=== PATIENT | male | born 1940 | race Caucasian/White ===

== ENCOUNTER 2016-10-29 10:23 | Inpatient (IN) | payer MEDICARE, OTHER ==
--- NOTE | ~2016-10-29 | CR72 ---
[facility] A Service of [facility] RADIOLOGY TEXT RESULTS PATIENT: ADRY SCHMITT LOCATION: [address] : 42 UNIT #: [id number] AGE: [address]: ANDRES POPE MD SEX: M ORDER DR: [id number] [facility] [address] [place], [place] [address] [id number] I MR#: [id number] #: [id number] NAME: ADRY SCHMITT : 1940 SEX: M STUDY DATE/TIME: 10/30/2016 5:20 UNIT: [facility] ROOM: [facility] STUDY DESCRIPTION: CR Chest Single View Portable Attending Physician: Andres Pope M.D. Referring Physician: Marlin Enriquez M.D. Ordering Physician: Yoshi Pope M.D. Primary Care Physician: Marlin Enriquez M.D. MEDICAL IMAGING REPORT This report is preliminary unless electronic signature is present EXAM AP portable chest 10/30/2016. HISTORY Respiratory failure. Follow up cardiopulmonary status. TECHNIQUE AP portable chest x-ray. FINDINGS Exam shows no significant change since yesterday. Mild cardiomegaly with probable mild vascular congestion. Pleural effusion with infiltrate or atelectasis in the left lung base. Low lung volumes. IMPRESSION Stable portable chest radiograph, unchanged since yesterday. Dictated by... Jose Cruz Rosas M.D. THIS IS AN ELECTRONICALLY VERIFIED REPORT Jose Cruz Rosas M.D. at 10/30/2016 3:06 PM JENNIFER/michael TD: 10/30/2016 12:10 JOB #: [id number] MEDICAL IMAGING REPORT COPY
--- NOTE | ~2016-10-29 | CO ---
Unit #: [id number] #: [id number] Patient: ADRY SCHMITT [id number] [address] [place], [place] [address] [id number] I MR#: [id number] NAME: ADRY SCHMITT ROOM: [facility] Age: 76 Sex: M Admission Date: 10/29/2016 : 1940 Attending Physician: Yuval Pope M.D. Primary Care Physician: Marlin Enriquez M.D. Consultation Date: 10/29/2016 CONSULTATION REPORT REASON FOR CONSULTATION Intensive care unit management. CHIEF COMPLAINT Shortness of breath. HISTORY OF PRESENT ILLNESS This is a pleasant 76-year-old male, with past medical history significant for chronic obstructive pulmonary disease, hypertension, atrial fibrillation on Coumadin, who presented to the emergency room with severe respiratory distress. History provided by his who is at bedside. She stated that this patient started having some cough and upper respiratory symptoms two days ago. He went to his doctor yesterday who advised him to go to the hospital but the patient was adamant to go home, so the patient was sent home on some p.o. antibiotics and Medrol Avi; however, later on throughout that day, he started becoming woozy and more dyspneic. Early this morning, his noted that he was in moderate respiratory distress so she forced him to come to the hospital. Upon presentation, the patient had to be placed on BiPAP due to severe respiratory distress. He is currently more comfortable and following commands. REVIEW OF SYSTEMS Twelve point review of systems were obtained and were negative except for what was mentioned in the history of present illness. PAST MEDICAL HISTORY 1. Chronic obstructive pulmonary disease. 2. Hypertension. 3. Atrial fibrillation. 4. Congestive heart failure. 5. Skin cancer. 6. Hyperlipidemia. 7. Diabetes. PAST SURGICAL HISTORY 1. Tonsillectomy. 2. Wound vac to right lower extremity. SOCIAL HISTORY The patient smokes half a pack per day since age 18. He denied any history of alcohol or drug abuse. FAMILY HISTORY Unit #: [id number] #: [id number] Patient: ADRY SCHMITT Hypertension. ALLERGIES Penicillin and Lipitor. HOME MEDICATIONS 1. WelChol 2. Fenofibrate 3. Potassium 4. Coumadin 5. Lantus 6. Bumex 7. Coreg 8. Cardizem 9. Pravachol 10. Vitamin D 11. Doxycycline 12. Zetia 13. Prednisone PHYSICAL EXAMINATION GENERAL: The patient is in respiratory distress on BiPAP. VITAL SIGNS: Blood pressure 113/62, O2 saturation 98%. HEENT: Atraumatic and normocephalic. NEMO. Extraocular muscles are intact. NECK: Supple. No jugular venous distention. No lymphadenopathy. CHEST: Decreased breath sounds bilaterally mainly at the bases with fine rhonchi at the left lower base. HEART: S1 and S2 with regular rhythm. No systolic murmur. ABDOMEN: Soft and nontender. Bowel sounds are positive. No hepatosplenomegaly. EXTREMITIES: No edema or cyanosis. SKIN: No rashes. REFINISHER: Awake, alert, oriented x3. No focal motor/sensory deficit. DIAGNOSTIC STUDIES LABORATORY: Blood gas, 7.8/77/69. White blood count 8.3, creatinine 1.4, sodium 138. IMAGING: Chest x-ray is concerning for pneumonia in the left lower lobe and right lower lobe. ASSESSMENT 1. Acute hypoxic hypercarbic respiratory failure. 2. Pneumonia likely Gram positive. 3. Congestive heart failure exacerbation. 4. Morbid obesity. 5. Diabetes. 6. Hypertension. 7. Hyperlipidemia. PLAN 1. The patient is critical, we will continue the patient on BiPAP with short breaks. 2. We will start the patient on IV Bumex and monitor I's and O's and inputs and outputs very strictly. 3. IV antibiotics including cefepime and azithromycin. 4. Bronchodilator and mucolytics. Unit #: [id number] #: [id number] Patient: ARDY SCHMITT 5. IV steroids. We will watch blood sugar very closely. 6. Sleep study as an outpatient. Critical care time spent on this patient was 32 minutes. Dictated by... Dahiana Loya TD: 10/30/2016 12:36 JOB #: [id number] CONSULTATION REPORT X SPENCER DELUNA MD CONSULTATION REPORT
--- NOTE | ~2016-10-29 | EKG ---
PATIENT: ADRY SCHMITT UNIT #: [id number] Ventricular Rate: 76 BPM Atrial Rate: 110 BPM QRS Duration: 76 ms Q-T Interval: 402 ms QTC Calculation(Bezet): 452 ms Calculated R Chester: 56 degrees Calculated T Chester: 42 degrees Diagnosis Line: Atrial fibrillation Diagnosis Line: Abnormal ECG Diagnosis Line: When compared with ECG of 29-OCT-2016 09:26, Diagnosis Line: (unconfirmed) Diagnosis Line: No significant change was found Diagnosis Line: Confirmed by KRISTAL MARROQUIN MD ([id number]) on Diagnosis Line: 10/30/2016 10:54:46 PM INTERPRETING MD: LEXIE
--- NOTE | ~2016-10-29 | CO ---
Unit #: [id number] #: [id number] Patient: ADRY SCHMITT [id number] [address] [place], [place] [address] [id number] I MR#: [id number] NAME: ADRY SCHMITT ROOM: [facility] Age: 76 Sex: M Admission Date: 10/29/2016 : 1940 Attending Physician: Yuval Pope M.D. Primary Care Physician: Marlin Enriquez M.D. CONSULTATION REPORT REASON FOR CONSULTATION Atrial fibrillation. HISTORY OF PRESENT ILLNESS This is a 76-year-old obese white male, who was brought to the emergency room complaining of shortness of breath for the last 2 to 3 days. He was found to be hypoxic on arrival to the ER. His O2 sat was 86% on 6 L of oxygen via nasal cannula and was started on a BiPAP. Apparently, he had been complaining of some shortness of breath for the last few days, and on 10/28/2016, he was seen by his primary care provider, Dr. Enriquez, and started on oral antibiotics, doxycycline, steroid, and prednisone. His condition and symptoms worsened. His shortness of breath did not improve, so he presented to the emergency room in acute respiratory failure. He had a change of mental status. Apparently, he had no chest pain, no fever, no syncope, but he did complain of a cough and some bilateral lower extremity swelling for the last 2 to 3 days. PAST MEDICAL HISTORY COPD; hypertension; AFib, managed on Coumadin; CHF; and skin cancer. PAST SURGICAL HISTORY Wound VAC to the right lower extremity and tonsillectomy. HOME MEDICATIONS Fenofibrate 200 mg daily, Coumadin 2 mg daily, Lantus 39 units at bedtime, Carvedilol 12.5 mg b.i.d., diltiazem CD 240 mg daily, Pravachol 20 mg daily, vitamin D 1000 units daily, albuterol 3 mL per nebulizer every 4 hours as needed for shortness of breath, Vibramycin 100 mg b.i.d., Zetia 10 mg daily, and prednisone 10 mg daily. ALLERGIES Penicillin and Lipitor. SOCIAL HISTORY Apparently, he smokes about a half pack of cigarettes daily. No alcohol or any illicit drug use reported. FAMILY HISTORY Unremarkable. REVIEW OF SYSTEMS 12-point review of systems was completed and as noted above in the HPI. Unit #: [id number] #: [id number] Patient: ADRY SCHMITT PHYSICAL EXAMINATION VITAL SIGNS: Temperature 98.1, heart rate 79, respirations 24, blood pressure is 153/90, he is 97% on BiPAP. Admission weight is 103 kg. His BMI is 38. NECK: Supple and obese with no JVD noted. No bruits noted. CHEST: Decreased breath sounds with rhonchi bilaterally. CARDIOVASCULAR: He has normal heart sounds, irregularly irregular rhythm with no clicks, no rubs, no murmur noted. ABDOMEN: Morbidly obese, but no masses, no organomegaly. EXTREMITIES: He has evidence of venous stasis to bilateral lower extremities and absent pedal pulses. No leg edema noted. DIAGNOSTIC STUDIES IMAGING STUDIES: Single-view chest x-ray done on 10/29/2016. Impression: 1. Cardiomegaly, possibly mild vascular congestion. 2. Airspace consolidation and/or pleural effusion in the left lung base. CARDIOVASCULAR STUDIES: EKG showed atrial fibrillation with a controlled heart rate and no acute ischemic changes. Vent rate of 76 beats per minute. QTC 452 milliseconds. LABORATORY RESULTS: Sodium 142, potassium 5, chloride 104, CO2 of 28, BUN is 41, creatinine 1.4, and glucose is 71. GFR is reduced mildly to 52.7. BNP was 508. Hemoglobin is 13.7, WBCs 11.2, hematocrit 42.3, and platelets 142. Troponin was less than 0.05. CK-MB was 3.3. PT was 76.9, INR is 6.8, PTT is 42.8. Blood gas pH was 7.3, PCO2 of 67.3, PO2 of 61.5, O2 sat of 89.3 that was done on BiPAP 14/6 settings. Lactic acid level 1.3. IMPRESSION 1. Acute congestive heart failure with questionable ischemic heart disease. 2. Severe chronic obstructive pulmonary disease. 3. Tobacco abuse. 4. Hypertension. 5. Insulin-dependent diabetes. 6. Severe peripheral artery disease. 7. Atherosclerotic cerebrovascular disease. 8. Obstructive sleep apnea. 9. Coumadin toxicity. PLAN Cardiology will follow him for his AFib and his CHF. We agree with adding diuretics. We will add an KRYSTINA for better blood pressure control, especially since he is diabetic, aspirin 81 daily. We will follow. Once his CHF is treated and improved, he will need an ischemic heart disease workup. Lisinopril 10 mg p.o. daily has been ordered. We will a check a 2D echo with Doppler today. Add a.c. and h.s. Accu-Checks with low-dose sliding scale protocol and check a fasting lipid profile. His Lovenox should be held today as his INR is supratherapeutic and we will administer vitamin K 5 mg subcu now and repeat at 2 p.m. Thank you for this consult. Dictated by... Linda Stone APRN for Dahiana Alvarez/melania Unit #: [id number] #: [id number] Patient: ADRY SCHMITT TD: 10/30/2016 09:44 JOB #: [id number] CONSULTATION REPORT X X CONSULTATION REPORT
--- NOTE | ~2016-10-29 | CR72 ---
[facility] A Service of [facility] & [facility] RADIOLOGY TEXT RESULTS PATIENT: ADRY SCHMITT LOCATION: [place] [id number] : [birth year] UNIT #: [id number] AGE: [address]: ANDRES AMIN MD SEX: M ORDER DR: [id number] [facility] [address] [place], [place] [address] [id number] MR#: [id number] Acc #: [id number] NAME: ADRY SCHMITT : 1940 SEX: M STUDY DATE/TIME: 10/29/2016 9:38 UNIT: [facility] ROOM: STUDY DESCRIPTION: CR Chest Single View Portable Attending Physician: Ye Ledesma M.D. Referring Physician: Marlin Enriquez M.D. Ordering Physician: Ye Ledesma M.D. Primary Care Physician: Marlin Enriquez M.D. MEDICAL IMAGING REPORT This report is preliminary unless electronic signature is present EXAM AP portable chest 10/29/2016 HISTORY 76-year-old male in the ED complaining of new onset shortness of air and cough beginning today. He has a reported history of congestive heart failure, diabetes and atrial fibrillation. TECHNIQUE AP portable upright chest x-ray. FINDINGS There is dense opacification of the left lung base behind the heart which could be due to pulmonary consolidation or pleural effusion with atelectasis. This is new since the previous study of 07/27/2011. Wqhy-np-skrrmjui cardiomegaly. Mildly prominent diffuse interstitial markings, also new since prior exam, may indicate mild vascular congestion, correlate clinically. Low lung volumes. IMPRESSION 1. Cardiomegaly and possible mild vascular congestion. 2. Airspace consolidation and/or pleural effusion at the left lung base. Dictated by... Jose Cruz Rosas M.D. THIS IS AN ELECTRONICALLY VERIFIED REPORT Jose Cruz Rosas M.D. at 10/29/2016 3:01 PM JENNIFER/michael TD: 10/29/2016 12:59 JOB #: [id number] [facility] A Service of [facility] & [facility] RADIOLOGY TEXT RESULTS PATIENT: ARDY SCHMITT LOCATION: [facility] [place] [address]80 : [birth year] UNIT #: [id number] AGE: [address]: ANDRES AMIN MD SEX: M ORDER DR: MEDICAL IMAGING REPORT COPY
--- NOTE | ~2016-10-29 | CR72 ---
[facility] A Service of [facility] & [facility] RADIOLOGY TEXT RESULTS PATIENT: ADRY SCHMITT LOCATION: [place] [address]- : [birth year] UNIT #: [id number] AGE: [address]: Feliciano Hein MD SEX: M ORDER DR: [id number] [facility] [address] [place], [place] [address] [id number] I MR#: [id number] Acc #: [id number] NAME: ADRY SCHMITT : 1940 SEX: M STUDY DATE/TIME: 11/02/2016 2:49 UNIT: [facility] ROOM: [facility] STUDY DESCRIPTION: CR Chest Single View Portable Attending Physician: Feliciano Hein M.D. Referring Physician: Marlin Enriquez M.D. Ordering Physician: Shravan Rivera M.D. Primary Care Physician: Marlin Enriquez M.D. MEDICAL IMAGING REPORT This report is preliminary unless electronic signature is present EXAM Portable AP view of the chest COMPARISON October 30, 2016, October 29, 2016 and July 27, 2011. INDICATION 76-year-old male with respiratory failure for 4 days. History of hypertension and CHF. Atrial fibrillation and COPD. FINDINGS No pneumothorax. There appears to be mild cardiomegaly, possibly accentuated by portable technique. However, PA view from November 2010 does demonstrate cardiomegaly. This is favored to be real. Since October 30, 2016 there are improved left lower lobe opacities reflecting atelectasis versus pneumonia. This could also reflect mild residual edema as interstitial opacities throughout the lungs have near completely resolved, likely reflecting improved pulmonary edema. There may be small associated left pleural effusion. IMPRESSION Improved interstitial opacities throughout the lungs in the setting of cardiomegaly, with improved confluent left basilar opacities, findings likely reflecting improved pulmonary edema. Correlation to exclude signs of left lower lobe pneumonia recommended. There is likely residual trace left pleural effusion. Dictated by... Manny Gilmore M.D. THIS IS AN ELECTRONICALLY VERIFIED REPORT Manny Gilmore M.D. at 11/07/2016 8:49 PM [facility] A Service of [facility] & [facility] RADIOLOGY TEXT RESULTS PATIENT: ADRY SCHMITT LOCATION: [address] 561-01 : [birth year] UNIT #: [id number] AGE: [address]: Feliciano Hein MD SEX: M ORDER DR: TYRELL/freddie TD: 11/02/2016 09:41 JOB #: [id number] MEDICAL IMAGING REPORT COPY
--- NOTE | ~2016-10-29 | EKG ---
PATIENT: ADRY SCHMITT UNIT #: [id number] Ventricular Rate: 74 BPM Atrial Rate: 250 BPM QRS Duration: 80 ms Q-T Interval: 388 ms QTC Calculation(Bezet): 430 ms Calculated R [place]: 70 degrees Calculated T [place]: 49 degrees Diagnosis Line: Atrial fibrillation Diagnosis Line: Abnormal ECG Diagnosis Line: When compared with ECG of 27-JUL-2011 14:29, Diagnosis Line: Atrial fibrillation has replaced Sinus rhythm Diagnosis Line: Confirmed by KRISTAL MARROQUIN MD ([id number]) on Diagnosis Line: 10/30/2016 10:41:00 PM INTERPRETING MD: LEXIE
--- NOTE | ~2016-10-29 | DS ---
Unit #: [id number] #: [id number] Patient: ADRY SCHMITT [id number] [address] [place], [place] [address] [id number] I MR#: [id number] NAME: ADRY SCHMITT ROOM: 561 Age: 76 Sex: M Admission Date: 10/29/2016 : 1940 Discharge Date: 11/07/2016 Attending Physician: Feliciano Hein M.D. Referring Physician: Marlin Enriquez M.D. Primary Care Physician: Marlin Enriquez M.D. DISCHARGE SUMMARY CONSULTANTS 1. Dr. García. 2. Dr. Cindy Pope. PROCEDURE Cardiac catheterization with triple-vessel coronary artery disease. ADMITTING DIAGNOSIS Acute hypoxic respiratory failure. FURTHER DIAGNOSES 1. Triple-vessel coronary artery disease. 2. Acute exacerbation of chronic obstructive pulmonary disease. 3. Community-acquired pneumonia. 4. Atrial fibrillation. 5. Pulmonary hypertension. 6. Left ventricular ejection fraction of 50% to 55%. 7. Permanent atrial fibrillation. HISTORY OF PRESENTING ILLNESS Patient is a 76-year-old morbidly obese man with multiple medical problems including hypertension, atrial fibrillation, on Coumadin, and COPD, who presented to the emergency room with the chief complaint of shortness of breath. HOSPITAL COURSE He was admitted into the ICU. He was started on breathing treatments. Pulmonary and Cardiology were consulted. He had a 2D echo done that showed an EF of 50% to 55%, RV pressure overload, moderate pulmonary hypertension, and RV global systolic function is mildly reduced. For further evaluation, he also had a cardiac catheterization on November 03, 2016, which showed triple-vessel disease with left main distal 75-80% stenosis, left circumflex ostial 50%, RCA proximal normal, mid 80%, followed by 99.9% stenosis, and distal normal. Dr. García reviewed the cath findings with a vascular surgeon and also with Dr. Cindy Pope. Because of his pulmonary situation where he is a little bit unstable, the plan is to improve him pulmonary morales in two to three weeks, and once he is stable, to follow up with CT surgeons as an outpatient. I discussed with Dr. García's nurse practitioner, and they are agreeable for discharge. Will discharge the patient home today. I requested him to follow up with Dr. García and with Dr. Cindy Pope as an outpatient, and to follow up with cardiovascular surgeons as an outpatient. PHYSICAL EXAMINATION ON DAY OF DISCHARGE Unit #: [id number] #: [id number] Patient: ADRY SCHMITT VITAL SIGNS: Temperature 97.5, pulse rate 108, respiratory rate 22, and blood pressure 105/62. GENERAL: Patient is morbidly obese and alert and oriented x3. HEENT: Normocephalic and atraumatic. No icterus. Pupils are equal, round, and reactive to light and accommodation. Extraocular muscles intact. NECK: Supple. No JVD. HEART: S1 and S2, irregular. CHEST: Bilateral equal air entry. Minimal crackles. ABDOMEN: Soft and nontender. EXTREMITIES: Edema present. DISCHARGE MEDICATIONS 1. Albuterol 3 mL nebulization q.4 p.r.n. 2. Coumadin 5 mg p.o. daily to titrate for INR between 2 and 3. 3. Zetia 10 mg daily. 4. Coreg 25 mg p.o. twice daily. 5. Welchol 3 tabs p.o. twice daily. 6. Omnicef 300 mg p.o. twice daily until November 09, 2016. 7. Lasix 40 mg twice daily. 8. Humibid-LA 600 mg twice daily. 9. Fenofibrate 200 mg in the morning. 10. Rosuvastatin (Crestor) 40 mg at bedtime. 11. Levemir 18 units subcutaneous twice daily. 12. Aspirin 81 mg daily. 13. Plavix 75 mg daily. 14. Imdur 60 mg p.o. daily. 15. Prednisone tapering dose. 16. Vitamin D (cholecalciferol) 1000 units p.o. daily. FOLLOWUP Patient is instructed to follow with Cardiology and with Pulmonary as an outpatient. Total time spent in the care 35 minutes. Dictated by..Dahiana Rodriguez/masood TD: 11/07/2016 21:37 JOB #: [id number] DISCHARGE SUMMARY X X DISCHARGE SUMMARY
--- NOTE | ~2016-10-29 | HP ---
Unit #: [id number] #: [id number] Patient: ADRY SCHMITT [id number] [address] [address] [id number] MR#: [id number] NAME: ADRY SCHMITT ROOM: [facility] Age: 76 Sex: M Admission Date: 10/29/2016 : 1940 Attending Physician: Yuval Pope M.D. Referring Physician: Marlin Enriquez M.D. Primary Care Physician: Marlin Enriquez M.D. HISTORY AND PHYSICAL CHIEF COMPLAINT Shortness of breath. HISTORY OF PRESENT ILLNESS The patient is a 76-year-old male with a history of COPD, hypertension, AFib on Coumadin, brought to the emergency room complaining of shortness of breath for the last two to three days. The patient was found to be hypoxic on arrival at (1) % at six liters of nasal cannula. The patient was started on BiPAP and the history is obtained by speaking to the patient's at the bedside. The patient has been complaining of shortness of breath for the last few days and was seen by the PCP yesterday by Dr. Enriquez and started on the oral antibiotics, doxycycline and steroid, prednisone. However, the patient continues to worsen with shortness of breath and presented to the emergency room with acute respiratory failure. The patient continues to smoke half a pack of smoking per day and is on Coumadin with INR of 4.3. The patient is being admitted for the above reasons. PAST MEDICAL HISTORY History of CHF, skin cancers, COPD, hypertension, AFib. PAST SURGICAL HISTORY Wound VAC to right lower extremity, tonsillectomy. SOCIAL HISTORY He smokes half a pack of cigarettes daily. He denies any alcohol or any illicit drug abuse. FAMILY HISTORY Reviewed and none. ALLERGIES Penicillin and Lipitor. HOME MEDICATIONS 1. WelChol. 2. Fenofibrate. 3. Potassium chloride. 4. Coumadin. 5. Lantus. 6. Bumex. 7. Carvedilol. 8. Cardizem. 9. Pravachol. Unit #: [id number] #: [id number] Patient: ADRY SCHMITT 10. Vitamin D. 11. Albuterol. 12. Vibramycin. 13. Zetia. 14. Warfarin. 15. Prednisone. REVIEW OF SYMPTOMS A 14-point review of symptoms was performed and only pertinent positive findings are described above, remaining are negative. PHYSICAL EXAMINATION GENERAL APPEARANCE: The patient is lying on the bed not in acute distress. VITAL SIGNS: Temperature 97.9. Pulse 79. Respiratory rate 15. Blood pressure 119/62. Sating 85% at six liters of nasal cannula and the patient is started on BiPAP. HEENT: Head: Atraumatic, normocephalic. Pupils equal, round and reacting to light and accommodation. NECK: Supple. LUNGS: Decreased air entry at the bases. Coarse breath sounds with positive rales at the left side. HEART: Regular rate and rhythm. ABDOMEN: Soft. Positive bowel sounds. EXTREMITIES: Positive for edema 2+ to 3+ with chronic venostasis. NEUROLOGIC: Alert, awake, oriented. DIAGNOSTIC STUDIES LABORATORY: Glucose 211, BUN 39, creatinine 1.4, sodium 138, potassium 5.1, chloride 104, bicarb 29, calcium 8.7, total protein 6.9, AST 20, ALT 14, alkaline phosphatase 36. BNP 508. Lactic acid 1.3. INR 4.3. pH at the time of admission 7.1, pCO2 77, pO2 69.5, bicarb 29.3, oxygen saturation 89.1. WBC 8.3, hemoglobin 14.8, hematocrit 45.8, platelets 169, neutrophils 89.9. IMAGING: Chest x-ray shows cardiomegaly and possible mild vascular congestion, airspace consolidation and/or pleural effusion at the left lung base. CARDIOVASCULAR: The EKG shows AFib at a rate of 74 beats per minute and a QTC of 430. ASSESSMENT 1. Acute respiratory failure on noninvasive ventilation. 2. Consolidation, left pleural effusion. 3. Coumadin toxicity. 4. Acute on chronic diastolic heart failure probably. PLAN To admit the patient to the ICU. Continue with the weaning of the BiPAP per Critical Care. Continue with the Critical Care consult with Dr. Rivera and IV antibiotics. Empiric antibiotics with cefepime and Zithromax and continue with diuresis with Bumex. Hold the Coumadin and check echocardiogram and follow with the Cardiology consult for the CHF maximization as the patient has never seen Cardiology in the past. Further recommendations will follow with more lab results available. Dictated by Yuval Pope M.D. Unit #: [id number] #: [id number] Patient: ISAIAHKYRADORITADARY ROSALIO/shalonda TD: 10/29/2016 17:49 JOB #: [id number] HISTORY AND PHYSICAL X X HISTORY AND PHYSICAL
--- NOTE | ~2016-10-29 | US84 ---
[id number] [facility] [address] [place], [place] [address] [id number] MR#: [id number] Acc #: [id number] NAME: ADRY SCHMITT : 1940 SEX: M STUDY DATE/TIME: 10/31/2016 20:14 UNIT: [facility] ROOM: [facility] STUDY DESCRIPTION: US LE Veins Complete Frank Stdy Attending Physician: Feliciano Hein M.D. Referring Physician: Marlin Enriquez M.D. Ordering Physician: Yoshi Ppoe M.D. Primary Care Physician: Marlin Enriquez M.D. MEDICAL IMAGING REPORT This report is preliminary unless electronic signature is present EXAM Bilateral lower extremity venous duplex, 10/31/2016 HISTORY Shortness of breath for 2 weeks and respiratory failure with atrial fibrillation, evaluate for deep vein thrombosis. TECHNIQUE Venous ultrasound examination of both lower extremities was performed using grayscale, spectral Doppler and color flow Doppler imaging. FINDINGS The examination is negative. There is no evidence of deep venous thrombus from the groin to the lower calf bilaterally. Visualized greater saphenous veins are also patent. IMPRESSION Negative examination. No evidence of lower extremity deep venous thrombosis. Dictated by... Norman Hough M.D. THIS IS AN ELECTRONICALLY VERIFIED REPORT Norman Hough M.D. at 11/01/2016 4:20 PM WATSON/vickie TD: 11/01/2016 02:57 JOB #: [id number] MEDICAL IMAGING REPORT COPY
[2016-10-29 10:02] LABS: ARTERIAL BLD GAS O2 SATURATION 89.1 % (90.0-100.0); ARTERIAL BLOOD GAS CARBOXY HB 1.5 %sat (0.0-9.0); ARTERIAL BLOOD GAS HCO3 29.3 mmol/L; ARTERIAL BLOOD GAS MET HB 0.6 %sat (0.0-2.0)
[2016-10-29 10:02] LABS: POC - CKMB 3.3 ng/mL (0.0-7.9); POC - TROPONIN <0.05 ng/mL (<=0.05)
[2016-10-29 10:08] LABS: ARTERIAL BLOOD GAS pH 7.185 (7.350-7.450)
[2016-10-29 10:09] LABS: ARTERIAL BLOOD GAS ALLEN TEST NORMAL; ARTERIAL BLOOD GAS ART SITE LEFT RADIAL; ARTERIAL BLOOD GAS PCO2 77.7 mmHg (35.0-45.0); ARTERIAL BLOOD GAS PO2 69.5 mmHg (80.0-100); ARTERIAL DRAW? YES
[2016-10-29 10:20] LABS: INR 4.3; PARTIAL THROMBOPLASTIN TIME 42.8 SECONDS (23.5-31.3); PROTHROMBIN TIME (PATIENT) 47.7 SECONDS (9.6-11.5)
[~2016-10-29 10:23] MED LIST: ALBUTEROL MININEB NEB; BUMEX2 MG PO; CARDIZEM CD240 M1 PO; COREG12.5 MG PO; COUMADIN2.5 MG PO; COUMADIN5 MG PO; DOXYCYCLINE PO; FENOFIBRATE200 M1 PO; JANTOVEN1 MG PO; LANTUS100 U/ML SQ; PERCOCET5/325 PO; POTASSIUM CHLO10 ME1 PO; PRAVACHOL20 MG PO; PREDNISONE10 MG PO; VITAMIN D2000 UNIT PO; WELCHOL625 MG PO; ZETIA PO
[2016-10-29 10:24] LABS: BASOPHIL% 0.3 % (0-2.5); HEMATOCRIT 45.8 % (38.0-50.0); HEMOGLOBIN 14.8 gm/dL (13.0-16.0); LYMPHOCYTE# 0.5 X10e3 (1.0-3.5); LYMPHOCYTE% 5.8 % (17.0-45.0); MEAN CELL VOLUME 97.6 FL (83-96); MEAN CORPUSCULAR HEMOGLOBIN 31.5 PG (28-34); MEAN CORPUSCULAR HGB CONC 32.3 g/dL (30-36); MEAN PLATELET VOLUME 9.9 FL (6.5-11.5); MONOCYTE# 0.3 X10e3 (0-1.0); NEUTROPHIL# 7.4 X10e3 (1.5-7.1); NEUTROPHIL% 89.9 % (40-75); PLATELET COUNT 169 X10e3 (140-420); RED CELL DISTRIBUTION WIDTH 15.6 % (11.0-15.5); WHITE BLOOD COUNT 8.3 X10e3 (4.0-10.5)
[2016-10-29 10:25] LABS: DIFF IND NO
[2016-10-29 12:39] LABS: ALBUMIN SERUM 3.5 g/dL (3.5-5.0); BILIRUBIN, DIRECT 0.2 mg/dL (0.0-0.2); BILIRUBIN,INDIRECT 0.3 mg/dL (0.0-0.9); BILIRUBIN,TOTAL 0.5 mg/dL (0.2-2.0); BUN/CREATININE RATIO 27.85; CALCIUM SERUM 8.7 mg/dL (8.4-10.2); CREATININE SERUM 1.4 mg/dL (0.6-1.4); GLOM FILT RATE Estimated 52.7 mL/min (>60); POTASSIUM 5.1 mmol/L (3.5-5.1); PROTEIN TOTAL SERUM 6.9 g/dL (6.0-8.3)
[2016-10-29 14:33] LABS: ARTERIAL BLD GAS O2 SATURATION 92.6 % (90.0-100.0); ARTERIAL BLOOD GAS CARBOXY HB 0.9 %sat (0.0-9.0); ARTERIAL BLOOD GAS MET HB 0.7 %sat (0.0-2.0); ARTERIAL BLOOD GAS pH 7.265 (7.350-7.450)
[2016-10-29 14:34] LABS: ARTERIAL BLOOD GAS ALLEN TEST NORMAL; ARTERIAL BLOOD GAS ART SITE RIGHT RADIAL; ARTERIAL BLOOD GAS DELIVERY BIPAP 14/6; ARTERIAL BLOOD GAS PCO2 66.1 mmHg (35.0-45.0); ARTERIAL DRAW? YES
[2016-10-30 04:10] LABS: ARTERIAL BLD GAS O2 SATURATION 89.3 % (90.0-100.0); ARTERIAL BLOOD GAS CARBOXY HB 0.6 %sat (0.0-9.0); ARTERIAL BLOOD GAS HCO3 33.1 mmol/L; ARTERIAL BLOOD GAS MET HB 0.8 %sat (0.0-2.0)
[2016-10-30 04:22] LABS: ARTERIAL BLOOD GAS ALLEN TEST NORMAL; ARTERIAL BLOOD GAS ART SITE LEFT RADIAL; ARTERIAL BLOOD GAS DELIVERY BIPAP 14/6; ARTERIAL BLOOD GAS PCO2 67.3 mmHg (35.0-45.0); ARTERIAL BLOOD GAS PO2 61.5 mmHg (80.0-100); ARTERIAL DRAW? YES
[2016-10-30 05:28] LABS: BASOPHIL% 0.2 % (0-2.5); HEMATOCRIT 42.3 % (38.0-50.0); HEMOGLOBIN 13.7 gm/dL (13.0-16.0); LYMPHOCYTE# 0.3 X10e3 (1.0-3.5); LYMPHOCYTE% 2.9 % (17.0-45.0); MEAN CELL VOLUME 96.9 FL (83-96); MEAN CORPUSCULAR HEMOGLOBIN 31.4 PG (28-34); MEAN CORPUSCULAR HGB CONC 32.4 g/dL (30-36); MEAN PLATELET VOLUME 9.6 FL (6.5-11.5); MONOCYTE# 0.4 X10e3 (0-1.0); MONOCYTE% 3.4 % (3.0-12.0); NEUTROPHIL# 10.5 X10e3 (1.5-7.1); NEUTROPHIL% 93.5 % (40-75); PLATELET COUNT 142 X10e3 (140-420); RED BLOOD COUNT 4.37 X10e (3.90-5.60); RED CELL DISTRIBUTION WIDTH 15.1 % (11.0-15.5); WHITE BLOOD COUNT 11.2 X10e3 (4.0-10.5)
[2016-10-30 05:31] LABS: DIFF IND NO
[2016-10-30 05:52] LABS: PROTHROMBIN TIME (PATIENT) 76.9 SECONDS (9.6-11.5)
[2016-10-30 05:53] LABS: INR 6.8
[2016-10-30 06:27] LABS: BUN/CREATININE RATIO 29.28; CALCIUM SERUM 8.8 mg/dL (8.4-10.2); CREATININE SERUM 1.4 mg/dL (0.6-1.4); GLOM FILT RATE Estimated 52.7 mL/min (>60)
[2016-10-31 04:45] LABS: HEMATOCRIT 42.7 % (38.0-50.0); MEAN CORPUSCULAR HEMOGLOBIN 31.5 PG (28-34); MEAN CORPUSCULAR HGB CONC 32.9 g/dL (30-36); MEAN PLATELET VOLUME 8.7 FL (6.5-11.5); RED BLOOD COUNT 4.45 X10e (3.90-5.60); RED CELL DISTRIBUTION WIDTH 14.9 % (11.0-15.5); WHITE BLOOD COUNT 10.9 X10e3 (4.0-10.5)
[2016-10-31 04:55] LABS: INR 3.1
[2016-10-31 05:55] LABS: CALCIUM SERUM 8.9 mg/dL (8.4-10.2); POTASSIUM 4.5 mmol/L (3.5-5.1)
[2016-10-31 06:11] LABS: BUN/CREATININE RATIO 33.33; CREATININE SERUM 1.5 mg/dL (0.6-1.4); GLOM FILT RATE Estimated 48.6 mL/min (>60)
[2016-11-01 05:52] LABS: HEMATOCRIT 42.8 % (38.0-50.0); HEMOGLOBIN 14.1 gm/dL (13.0-16.0); MEAN CELL VOLUME 95.4 FL (83-96); MEAN CORPUSCULAR HEMOGLOBIN 31.4 PG (28-34); MEAN CORPUSCULAR HGB CONC 32.9 g/dL (30-36); MEAN PLATELET VOLUME 8.7 FL (6.5-11.5); RED BLOOD COUNT 4.49 X10e (3.90-5.60); WHITE BLOOD COUNT 10.5 X10e3 (4.0-10.5)
[2016-11-01 06:07] LABS: INR 1.4
[2016-11-01 06:10] LABS: PROTHROMBIN TIME (PATIENT) 15.2 SECONDS (9.6-11.5)
[2016-11-01 06:51] LABS: CALCIUM SERUM 8.5 mg/dL (8.4-10.2); CREATININE SERUM 1.5 mg/dL (0.6-1.4); GLOM FILT RATE Estimated 48.6 mL/min (>60); POTASSIUM 4.1 mmol/L (3.5-5.1)
[2016-11-02 05:16] LABS: BASOPHIL% 0.1 % (0-2.5); HEMATOCRIT 43.7 % (38.0-50.0); HEMOGLOBIN 14.5 gm/dL (13.0-16.0); LYMPHOCYTE# 0.2 X10e3 (1.0-3.5); MEAN CELL VOLUME 95.6 FL (83-96); MEAN CORPUSCULAR HEMOGLOBIN 31.7 PG (28-34); MEAN CORPUSCULAR HGB CONC 33.1 g/dL (30-36); MEAN PLATELET VOLUME 9.4 FL (6.5-11.5); MONOCYTE# 0.4 X10e3 (0-1.0); MONOCYTE% 3.9 % (3.0-12.0); NEUTROPHIL# 9.9 X10e3 (1.5-7.1); PLATELET COUNT 133 X10e3 (140-420); RED BLOOD COUNT 4.57 X10e (3.90-5.60); RED CELL DISTRIBUTION WIDTH 14.8 % (11.0-15.5); WHITE BLOOD COUNT 10.5 X10e3 (4.0-10.5)
[2016-11-02 05:27] LABS: DIFF IND NO
[2016-11-02 06:16] LABS: BUN/CREATININE RATIO 39.23; CALCIUM SERUM 8.1 mg/dL (8.4-10.2); CREATININE SERUM 1.3 mg/dL (0.6-1.4); GLOM FILT RATE Estimated 57.4 mL/min (>60); MAGNESIUM 2.2 mg/dL (1.6-3.0); POTASSIUM 3.7 mmol/L (3.5-5.1)
[2016-11-03 06:18] LABS: BASOPHIL% 0.2 % (0-2.5); HEMATOCRIT 44.2 % (38.0-50.0); HEMOGLOBIN 14.1 gm/dL (13.0-16.0); LYMPHOCYTE# 0.2 X10e3 (1.0-3.5); LYMPHOCYTE% 2.3 % (17.0-45.0); MEAN CELL VOLUME 95.8 FL (83-96); MEAN CORPUSCULAR HEMOGLOBIN 30.7 PG (28-34); MEAN PLATELET VOLUME 8.1 FL (6.5-11.5); MONOCYTE# 0.4 X10e3 (0-1.0); MONOCYTE% 4.3 % (3.0-12.0); NEUTROPHIL# 8.6 X10e3 (1.5-7.1); NEUTROPHIL% 93.2 % (40-75); PLATELET COUNT 148 X10e3 (140-420); RED BLOOD COUNT 4.61 X10e (3.90-5.60); RED CELL DISTRIBUTION WIDTH 14.8 % (11.0-15.5); WHITE BLOOD COUNT 9.3 X10e3 (4.0-10.5)
[2016-11-03 06:32] LABS: DIFF IND NO
[2016-11-03 06:51] LABS: ALBUMIN SERUM 2.8 g/dL (3.5-5.0); BILIRUBIN,TOTAL 0.8 mg/dL (0.2-2.0); BUN/CREATININE RATIO 31.53; CALCIUM SERUM 8.2 mg/dL (8.4-10.2); CREATININE SERUM 1.3 mg/dL (0.6-1.4); GLOM FILT RATE Estimated 57.4 mL/min (>60); MAGNESIUM 2.4 mg/dL (1.6-3.0); POTASSIUM 4.2 mmol/L (3.5-5.1); PROTEIN TOTAL SERUM 5.4 g/dL (6.0-8.3)
[2016-11-04 05:21] LABS: HEMATOCRIT 46.9 % (38.0-50.0); HEMOGLOBIN 15.3 gm/dL (13.0-16.0); MEAN CELL VOLUME 96.2 FL (83-96); MEAN CORPUSCULAR HEMOGLOBIN 31.3 PG (28-34); MEAN CORPUSCULAR HGB CONC 32.6 g/dL (30-36); MEAN PLATELET VOLUME 8.4 FL (6.5-11.5); RED BLOOD COUNT 4.87 X10e (3.90-5.60); WHITE BLOOD COUNT 11.2 X10e3 (4.0-10.5)
[2016-11-04 06:20] LABS: BLOOD UREA NITROGEN 35 mg/dL (9-23); BUN/CREATININE RATIO 31.81; CALCIUM SERUM 8.5 mg/dL (8.4-10.2); CARBON DIOXIDE 40 mmol/L (22-31); CHLORIDE 97 mmol/L (100-111); CREATININE SERUM 1.1 mg/dL (0.6-1.4); GLOM FILT RATE Estimated ABOVE60 mL/min (>60); GLUCOSE FASTING 139 mg/dL (70-110); POTASSIUM 4.7 mmol/L (3.5-5.1); SODIUM 144 mmol/L (135-145)
[2016-11-06 06:24] LABS: HEMATOCRIT 46.7 % (38.0-50.0); MEAN CELL VOLUME 95.7 FL (83-96); MEAN CORPUSCULAR HEMOGLOBIN 30.8 PG (28-34); MEAN CORPUSCULAR HGB CONC 32.2 g/dL (30-36); MEAN PLATELET VOLUME 8.6 FL (6.5-11.5); RED BLOOD COUNT 4.88 X10e (3.90-5.60); RED CELL DISTRIBUTION WIDTH 14.6 % (11.0-15.5); WHITE BLOOD COUNT 13.2 X10e3 (4.0-10.5)
[2016-11-06 06:39] LABS: INR 1.2; PROTHROMBIN TIME (PATIENT) 12.6 SECONDS (9.6-11.5)
[2016-11-06 06:58] LABS: BLOOD UREA NITROGEN 39 mg/dL (9-23); CALCIUM SERUM 8.8 mg/dL (8.4-10.2); CARBON DIOXIDE 44 mmol/L (22-31); CHLORIDE 91 mmol/L (100-111); GLOM FILT RATE Estimated ABOVE60 mL/min (>60); GLUCOSE FASTING 82 mg/dL (70-110); POTASSIUM 4.1 mmol/L (3.5-5.1); SODIUM 144 mmol/L (135-145)
[2016-11-07 05:40] LABS: HEMATOCRIT 43.7 % (38.0-50.0); HEMOGLOBIN 14.4 gm/dL (13.0-16.0); MEAN CELL VOLUME 94.6 FL (83-96); MEAN CORPUSCULAR HEMOGLOBIN 31.1 PG (28-34); MEAN CORPUSCULAR HGB CONC 32.9 g/dL (30-36); MEAN PLATELET VOLUME 8.9 FL (6.5-11.5); RED BLOOD COUNT 4.62 X10e (3.90-5.60); RED CELL DISTRIBUTION WIDTH 14.7 % (11.0-15.5); WHITE BLOOD COUNT 13.1 X10e3 (4.0-10.5)
[2016-11-07 06:06] LABS: INR 1.5; PROTHROMBIN TIME (PATIENT) 15.5 SECONDS (9.6-11.5)
[2016-11-07 06:07] LABS: BLOOD UREA NITROGEN 48 mg/dL (9-23); BUN/CREATININE RATIO 43.63; CALCIUM SERUM 8.5 mg/dL (8.4-10.2); CARBON DIOXIDE 45 mmol/L (22-31); CHLORIDE 90 mmol/L (100-111); CREATININE SERUM 1.1 mg/dL (0.6-1.4); GLOM FILT RATE Estimated ABOVE60 mL/min (>60); GLUCOSE FASTING 93 mg/dL (70-110); POTASSIUM 3.8 mmol/L (3.5-5.1); SODIUM 140 mmol/L (135-145)
[2016-11-07] MEDS ORDERED: NICOTINE TRANSD14 MG TOP (16:50)
[2016-11-07] MEDS ORDERED: OMNICEF300 M1 PO (16:51)
[2016-11-07] MEDS ORDERED: FUROSEMIDE40 MG PO (16:51)
[2016-11-07] MEDS ORDERED: HUMIBID-LA600 MG PO (16:52)
[2016-11-07] MEDS ORDERED: CRESTOR40 MG PO (16:52)
[2016-11-07] MEDS ORDERED: LEVEMIR100 UNITS/ SUBQ (16:53)
[2016-11-07] MEDS ORDERED: ASPIRIN81 MG PO (16:53)
[2016-11-07] MEDS ORDERED: OCEAN45 ML (16:54)
[2016-11-07] MEDS ORDERED: CLOPIDOGREL75 MG PO (16:54)
[2016-11-07] MEDS ORDERED: PREDNISONE PO (16:55)
[2016-11-07] MEDS ORDERED: IMDUR-ER60 M1 PO (16:55)
== END 2016-11-07 18:33 | disposition home health service (06) | DRG 286 ==
LOC: CED 10:23 → CEDOF 13:45 → CICCU3 15:30 → C5B 11-02 12:35
PROVIDERS: Emergency Medicine; Internal Medicine; Internal Medicine Pulmonary Disease
PROC: B246ZZZ Ultrasonography of Right and Left Heart (ICD-10-PCS; 2016-10-30)
PROC: 4A023N7 Measurement of Cardiac Sampling and Pressure, Left Heart, Percutaneous Approach (ICD-10-PCS; principal; 2016-11-03)
PROC: B211YZZ Fluoroscopy of Multiple Coronary Arteries using Other Contrast (ICD-10-PCS; 2016-11-03)
PROC: B215YZZ Fluoroscopy of Left Heart using Other Contrast (ICD-10-PCS; 2016-11-03)
DX: I13.0 Hypertensive heart and chronic kidney disease with heart failure and stage 1 through stage 4 chronic kidney disease, or unspecified chronic kidney disease (principal); J96.01 Acute respiratory failure with hypoxia; J15.9 Unspecified bacterial pneumonia; N17.9 Acute kidney failure, unspecified; J96.02 Acute respiratory failure with hypercapnia; I27.2 Other secondary pulmonary hypertension; Z68.41 Body mass index [BMI] 40.0-44.9, adult; J44.0 Chronic obstructive pulmonary disease with (acute) lower respiratory infection; I48.2 Chronic atrial fibrillation; I67.2 Cerebral atherosclerosis; E66.01 Morbid (severe) obesity due to excess calories; E11.9 Type 2 diabetes mellitus without complications; I50.33 Acute on chronic diastolic (congestive) heart failure; J44.1 Chronic obstructive pulmonary disease with (acute) exacerbation; F17.210 Nicotine dependence, cigarettes, uncomplicated; I25.118 Atherosclerotic heart disease of native coronary artery with other forms of angina pectoris; Z79.01 Long term (current) use of anticoagulants; T45.515A Adverse effect of anticoagulants, initial encounter; Y92.9 Unspecified place or not applicable; G47.33 Obstructive sleep apnea (adult) (pediatric); I73.9 Peripheral vascular disease, unspecified; E78.5 Hyperlipidemia, unspecified; Z79.4 Long term (current) use of insulin; R31.9 Hematuria, unspecified; N18.9 Chronic kidney disease, unspecified
CPT/HCPCS: 36415; 36600; 71010; 80048; 80053; 80061; 80076; 82308; 82553; 82803; 82947; 83605; 83735; 83880; 84484; 85025; 85027; 85610; 85730; 87040; 87070; 87205; 93005; 93306; 93970; 94640; 94660; 94760; 94761; 96365; 96375; 97110; 97116; 97163; 97166; 97530; 97535; 99285; C1769; C1887; C1894; G8978-GP; G8979-GP; G8987-GO; G8988-GO; J0456; J0692; J1644; J1650; J1815; J1940; J1956; J2250; J2920; J2930; J3010; J3430

== ENCOUNTER → 2016-11-21 | Outpatient (CLI) | payer MEDICARE, OTHER ==
[~2016-11-21] MED LIST changes: +ASPIRIN81 MG PO; +CLOPIDOGREL75 MG PO; +CRESTOR40 MG PO; +FUROSEMIDE40 MG PO; +HUMIBID-LA600 MG PO; +IMDUR-ER60 M1 PO; +LEVEMIR100 UNITS/ SUBQ; +NICOTINE TRANSD14 MG TOP; +OCEAN45 ML; +OMNICEF300 M1 PO; +PREDNISONE PO
--- NOTE | ~2016-11-21 | PFT ---
[id number] [facility] [address] [place], [place] [address] [id number] MR#: [id number] NAME: ADRY SCHMITT ROOM: SEX: Shyam STUDY DATE/TIME: 11/22/2016 : 1940 AGE: 76 STUDY DESCRIPTION: Attending Physician: Cristiano García M.D. Referring Physician: Cristiano García M.D. Primary Care Physician: Marlin Enriquez M.D. PULMONARY DIAGNOSTIC REPORT EXAM Pulmonary function test. DESCRIPTION Spirometry is remarkable for moderate obstructive defect with an FEV1 of 1.5 L, 57% of predicted. There is no significant response to bronchodilators. Flow volume loops consistent with an obstructive defect. Lung volumes are likely inaccurate. Although no comment is made by the residential gas heat technician, I suspect inaccuracy and this will be investigated. Diffusion capacity is severely reduced. Spirometry and diffusion capacity are consistent with emphysema, cannot rule out a concomitant restrictive defect. Consider repeating PFTs with lung volumes. Dictated by... Jeronimo Golden M.D. MAXI/raudel TD: 11/23/2016 07:43 JOB #: [id number] PULMONARY DIAGNOSTIC REPORT Page 1 of 1
== END | disposition home or self-care (01) ==
LOC: CRC 09:13
DX: J44.9 Chronic obstructive pulmonary disease, unspecified (principal)
CPT/HCPCS: 94060; 94726; 94729